=== PATIENT | male | born 1965 | race Caucasian/White ===

== ENCOUNTER 2016-08-24 19:33 | Emergency (ER) | payer OTHER ==
[2016-08-24] MEDS ORDERED: ONDANSETRON 4 MG/2ML 2 ML VIAL ONE (20:15)
[2016-08-24] MEDS ORDERED: HYDROMORPHONE HCL 1 MG/ML SYRINGE ONE ×2 (20:15→20:48)
[2016-08-24 20:38] LABS: ABSOLUTE NEUTROPHIL COUNT 8.4 K/mm3 (1.8-7.7); BASO # 0.1 K/mm3 (0.0-0.2); BASO % 0.5 % (0.2-1.0); EOS # 0.2 (0.0-0.5); EOS % 1.6 % (0.9-2.9); HEMATOCRIT 46.3 % (32.0-52.0); HEMOGLOBIN 15.3 gm/l (14.0-18.0); IMM NEUT # 0.1 K/mm3 (0-0.2); IMM NEUT% 0.4 % (0-1); LYMPH # 2.3 (1.0-4.8); LYMPH % 19.7 % (15-45); MEAN CELL VOLUME 87.4 fl (80.0-94.0); MEAN CORPUSCULAR HEMOGLOBIN 28.9 pg (27.0-31.0); MEAN PLATELET VOLUME 9.9 fl (7.4-10.4); MONO # 0.7 (0.0-0.8); MONO % 5.9 % (4-12); NEUT % 71.9 % (43-75); PLATELET COUNT 241 K/mm3 (130-400); RED CELL DISTRIBUTION WIDTH 12.8 % (11.5-14.5)
[2016-08-24] MEDS ORDERED: KETOROLAC TROMETHAMINE 30 MG/ML 1 ML VIAL ONE (20:48)
[2016-08-24 20:51] LABS: ALB/GLOB RATIO 1.4 (>1.0); ALBUMIN 4.5 gm/dL (3.5-5.7)
--- NOTE | 2016-08-24 21:08 | CT ---
CT ABDOMEN AND PELVIS WITHOUT CONTRAST HISTORY: Left flank pain. TECHNIQUE: No intravenous contrast administered; contiguous axial images were acquired from the lung bases to the ischial tuberosities. Oral contrast was not administered. COMPARISON:None. FINDINGS: LUNG BASES: Minor atelectatic change at the right lung base. LIVER: Diffuse fatty infiltration, no mass effect SPLEEN: No focal mass effect. STOMACH: Small hiatal hernia. PANCREAS: No focal mass effect. ADRENAL GLANDS: No mass effect. KIDNEYS: Unremarkable appearance of the right kidney. Moderate collecting system dilatation with perinephric stranding on the left. Obstructive midureteral calculus measuring 4 mm and in width at the upper L4 level. GALLBLADDER: Present. BOWEL: Moderate fecal loading. Limited assessment of the distal colon due to decompression. No abnormal small bowel dilatation. Colonic diverticulosis without features of diverticulitis. APPENDIX: Normal gas-filled appendix. PELVIC ORGANS: No gross mass effect. FREE FLUID: No gross free fluid identified. INGUINAL REGIONS: Small fatty inguinal hernia formation bilaterally. ABDOMINOPELVIC LYMPH NODES: No abnormally enlarged lymph nodes identified. ABDOMINAL AORTA: Normal caliber. OSSEOUS STRUCTURES: Findings of prominent disc degeneration at L5-S1. Right paracentral herniation at L4-5, correlate for possible L5 radiculopathy. IMPRESSION: 1. Obstructive left mid ureteral calculus measuring 4 mm in width with no residual renal calculi. 2. Right paracentral disc herniation at L4-5. 3. Colonic diverticulosis without diverticulitis, nonobstructive appearance of bowel. Results were electronically transmitted to the electronic medical record at 08/24/2016 at 2103 hours.
[2016-08-24] MEDS ORDERED: TAMSULOSIN HCL 0.4 MG CAPSULE.DR ONE (21:20)
== END 2016-08-24 22:25 | disposition home or self-care (01) ==
LOC: ED 19:33
DX: N20.9 Urinary calculus, unspecified (principal); R11.2 Nausea with vomiting, unspecified